=== PATIENT | female | born 1980 | race American Indian/Alaskan Native ===

== ENCOUNTER 2017-05-09 11:50 | Emergency (ER) | payer MEDICAID, OTHER ==
[2017-05-09] MEDS ORDERED: PROVENTIL IH ONE ×2 (12:37→12:38)
[2017-05-09] MEDS ORDERED: ATROVENT IH ONE ×2 (12:37→12:38)
--- NOTE | 2017-05-09 12:44 | XRay Report ---
Chest 2 views: History: Shortness of breath. Findings: Normal cardiomediastinal silhouette. Trachea is midline. No consolidation, pneumothorax or pleural effusion. Impression: No acute cardiopulmonary findings.
[2017-05-09] MEDS ORDERED: MAGNESIUM SULFATE 2GM/50ML 2 GM/50 ML BAG IV ONE (12:46)
[2017-05-09 12:47] LABS: Basophils % (Auto) 0.3 % (0.0-1.8); Eosinophils # (Auto) 0.3 K/mm3 (0.0-0.4); Eosinophils % (Auto) 3.4 % (0.0-4.3); Hematocrit 35.2 % (30.3-42.9); Hemoglobin 11.2 gm/dl (10.1-14.3); Lymphocytes # (Auto) 3.6 K/mm3 (1.2-5.4); Lymphocytes % (Auto) 38.2 % (13.4-35.0); Mean Corpuscular HGB Conc 32 % (30-34); Mean Corpuscular Volume 78 fl (79-97); Monocytes # (Auto) 0.7 K/mm3 (0.0-0.8); Monocytes % (Auto) 7.1 % (0.0-7.3); Platelet Count 274 K/mm3 (140-440); Red Blood Count 4.54 M/mm3 (3.65-5.03); Red Cell Distribution Width 16.5 % (13.2-15.2)
[2017-05-09] MEDS ORDERED: NACL 0.9% 500 ML 500 ML IV ONE (12:47)
[2017-05-09] MEDS ORDERED: APRESOLINE IV ONE (12:47)
--- NOTE | 2017-05-09 12:49 | Emergency Department Report ---
ED Asthma HPI - General Chief Complaint: Dyspnea/Respdistress Stated Complaint: ASTHMA ATTACK Time Seen by Provider: 05/09/17 12:39 Source: patient, RN notes reviewed Mode of arrival: Ambulatory Limitations: No Limitations - History of Present Illness Initial Comments: This is a 36-year-old female who was previously unknown to this provider. She does have a primary care physician, but she cannot recall his or her name. She has a past medical history obesity, asthma, hypertension, reports a few let time hospitalizations, but denies intubations. She has no leg pain, leg swelling, she reports that she is not , and she further reports no DVT or pulmonary embolus risk factors. She presents to the ER with a complaint of asthma, wheezing, cough. is has been going on intermittently for the past few weeks. Her symptoms have been waxing and waning, she reports taking albuterol at home, and the somewhat improved her symptoms. There is no chest pain, headache, neck pain or abdominal pain, vomiting or diaphoresis. MD Complaint: "asthma attack", wheezing -: Gradual Asthma History: childhood onset, history of frequent attac Severity: moderate Context: recent URI, allergen exposure, smoke exposure Associated Symptoms: dry cough Treatments Prior to Arrival: inhaled bronchodilator - Related Data Current Asthma Therapy: inhaled bronchodilator Previous Rx's Medication Instructions Recorded Last Taken Type Albuterol Sulfate [Albuterol 0.63% 0.63 mg IH Q4HR PRN #2 ml 05/09/17 Unknown Rx NEBS] Albuterol Sulfate [Proair 90 mcg IH Q4HR PRN #2 aer.pow.ba 05/09/17 Unknown Rx Respiclick] Benzonatate [Tessalon Perles] 100 mg PO Q8HR PRN #30 capsule 05/09/17 Unknown Rx Fluticasone [Flonase] 1 spray NS QDAY #1 bottle 05/09/17 Unknown Rx Ipratropium [place] [Atrovent Hfa] 12.9 gm IH Q4HR #2 hfa.aer.ad 05/09/17 Unknown Rx Ipratropium [Atrovent NEB] 0.5 mg IH Q4HR #2 ml 05/09/17 Unknown Rx predniSONE [Deltasone] 40 mg PO QDAY #8 tab 05/09/17 Unknown Rx Allergies Allergy/AdvReac Type Severity Reaction Status Date / Time raw vegetable Allergy Itching Verified 05/09/17 11:57 shellfish derived Allergy Nausea Verified 05/09/17 11:57 raw fruit Allergy Itching Uncoded 05/09/17 11:57 ED Review of Systems ROS: Stated complaint: ASTHMA ATTACK Other details as noted in HPI ED Past Medical Hx - Past Medical History Previous Medical History?: Yes Hx Hypertension: Yes Hx Asthma: Yes Additional medical history: Sleep apnea. No CPAP - Surgical History Past Surgical History?: Yes Hx Cholecystectomy: Yes Additional Surgical History: Tubaligation, Right leg surgery - Social History Smoking Status: Never Smoker Substance Use Type: Prescribed - Medications Home Medications: Home Medications Medication Instructions Recorded Confirmed Last Taken Type Albuterol Sulfate [Albuterol 0.63% 0.63 mg IH Q4HR PRN #2 ml 05/09/17 Unknown Rx NEBS] Albuterol Sulfate [Proair 90 mcg IH Q4HR PRN #2 aer.pow.ba 05/09/17 Unknown Rx Respiclick] Benzonatate [Tessalon Perles] 100 mg PO Q8HR PRN #30 capsule 05/09/17 Unknown Rx Fluticasone [Flonase] 1 spray NS QDAY #1 bottle 05/09/17 Unknown Rx Ipratropium [place] [Atrovent Hfa] 12.9 gm IH Q4HR #2 hfa.aer.ad 05/09/17 Unknown Rx Ipratropium [Atrovent NEB] 0.5 mg IH Q4HR #2 ml 05/09/17 Unknown Rx predniSONE [Deltasone] 40 mg PO QDAY #8 tab 05/09/17 Unknown Rx ED Physical Exam - General Limitations: No Limitations General appearance: alert, in no apparent distress, obese - Head Head exam: Present: atraumatic, normocephalic - Eye Eye exam: Present: normal appearance, EOMI - ENT ENT exam: Present: normal exam, normal orophraynx, mucous membranes moist, normal external ear exam - Neck Neck exam: Present: normal inspection - Respiratory Respiratory exam: Present: wheezes. Absent: rhonchi, stridor - Cardiovascular Cardiovascular Exam: Present: normal rhythm, tachycardia, normal heart sounds. Absent: systolic murmur, diastolic murmur, rubs, gallop - GI/Abdominal GI/Abdominal exam: Present: soft, normal bowel sounds. Absent: distended, tenderness, guarding, rebound, rigid, pulsatile mass - Extremities Exam Extremities exam: Present: normal inspection, full ROM, normal capillary refill. Absent: pedal edema, joint swelling, calf tenderness - Back Exam Back exam: Present: normal inspection, full ROM. Absent: tenderness, CVA tenderness (R), paraspinal tenderness, vertebral tenderness - Neurological Exam Neurological exam: Present: alert, oriented X3, CN II-XII intact, normal gait, other (Extraocular movements intact. Tongue midline. No facial droop. Facial sensation intact to light touch in the V1, V2, V3 distribution bilaterally. 5 and 5 strength in 4 extremities.. Sensation is intact to light touch in 4 extremities.). Absent: motor sensory deficit - Psychiatric Psychiatric exam: Present: normal affect, normal mood - Skin Skin exam: Present: warm, dry, intact, normal color. Absent: rash ED Course Vital Signs 05/09/17 05/09/17 05/09/17 11:57 12:37 12:39 Temperature 97.9 F Pulse Rate 122 H Pulse Rate [ 114 H Throughout] Respiratory 22 22 Rate Respiratory 25 H Rate [ Throughout] Blood Pressure 201/110 O2 Sat by Pulse 98 99 Oximetry 05/09/17 13:14 Temperature Pulse Rate 106 H Pulse Rate [ Throughout] Respiratory Rate Respiratory Rate [ Throughout] Blood Pressure 134/79 O2 Sat by Pulse Oximetry ED Medical Decision Making - Lab Data Result diagrams: 05/09/17 12:22 05/09/17 12:22 Vital Signs 05/09/17 05/09/17 05/09/17 11:57 12:37 12:39 Temperature 97.9 F Pulse Rate 122 H Pulse Rate [ 114 H Throughout] Respiratory 22 22 Rate Respiratory 25 H Rate [ Throughout] Blood Pressure 201/110 O2 Sat by Pulse 98 99 Oximetry 05/09/17 13:14 Temperature Pulse Rate 106 H Pulse Rate [ Throughout] Respiratory Rate Respiratory Rate [ Throughout] Blood Pressure 134/79 O2 Sat by Pulse Oximetry Lab Results 05/09/17 05/09/17 Range/Units 12:22 12:22 WBC 9.5 (4.5-11.0) K/mm3 RBC 4.54 (3.65-5.03) M/mm3 Hgb 11.2 (10.1-14.3) gm/dl Hct 35.2 (30.3-42.9) % MCV 78 L (79-97) fl MCH 25 L (28-32) pg MCHC 32 (30-34) % RDW 16.5 H (13.2-15.2) % Plt Count 274 (140-440) K/mm3 Lymph % (Auto) 38.2 H (13.4-35.0) % Rice % (Auto) 7.1 (0.0-7.3) % Eos % (Auto) 3.4 (0.0-4.3) % Baso % (Auto) 0.3 (0.0-1.8) % Lymph # 3.6 (1.2-5.4) K/mm3 Rice # 0.7 (0.0-0.8) K/mm3 Eos # 0.3 (0.0-0.4) K/mm3 Baso # 0.0 (0.0-0.1) K/mm3 Seg Neutrophils % 51.0 (40.0-70.0) % Seg Neutrophils # 4.8 (1.8-7.7) K/mm3 Sodium 139 (137-145) mmol/L Potassium 3.8 (3.6-5.0) mmol/L Chloride 99.2 (98-107) mmol/L Carbon Dioxide 24 (22-30) mmol/L Anion Gap 20 mmol/L BUN 15 (7-17) mg/dL Creatinine 0.8 (0.7-1.2) mg/dL Estimated GFR > 60 ml/min BUN/Creatinine Ratio 19 % Glucose 172 H (65-100) mg/dL Calcium 9.2 (8.4-10.2) mg/dL - Medical Decision Making Differential diagnosis, including but not limited to: Bronchitis, asthma exacerbation, reactive airway disease Assessment and plan: 30-year-old female with a history of asthma, presenting with cough, wheezing. Patient initially tachycardic, hypertensive, she is given albuterol, Atrovent, steroids, magnesium and IV fluids. Patient reassessed by me frequently in the ER. Patient able to ambulate without significant desaturation, and after aggressive therapy her wheezing and symptoms much improved. There is no chest pain, there are no pulmonary embolus or DVT risk factors traditionally, I would consider the patient's low risk by well's criteria. She is somewhat tachycardic this is most likely secondary to albuterol. Patient encouraged to lose weight through diet modification and follow up with outpatient primary care and pulmonology. return precautions were reviewed. Critical care attestation.: If time is entered above; I have spent that time in minutes in the direct care of this critically ill patient, excluding procedure time. ED Disposition Clinical Impression: Asthma exacerbation Disposition: DC-01 TO HOME OR SELFCARE Is pt being admited?: No Does the pt Need Aspirin: No Condition: Stable Instructions: Asthma (ED) Additional Instructions: Take the breathing medications as directed. Take the steroids as directed. take The cough medication as needed. Follow up with any of the listed lung doctors her primary care doctors within the next 2 weeks. I would recommend aggressive weight loss, through diet and life style modifications, as this will likely improve asthma, work of breathing, quality of life overall and overall health. Return to the ER with new pain, worsened pain, migration of pain, fevers, chills , lethargy, irritability, projectile vomiting, change in mental status, confusion, inability to tolerate liquid feeds. Prescriptions: Albuterol Sulfate [Albuterol 0.63% NEBS] 0.63 mg IH Q4HR PRN #2 ml PRN Reason: Wheezing Albuterol Sulfate [Proair Respiclick] 90 mcg IH Q4HR PRN #2 aer.pow.ba PRN Reason: Wheezing Benzonatate [Tessalon Perles] 100 mg PO Q8HR PRN #30 capsule PRN Reason: Cough Fluticasone [Flonase] 1 spray NS QDAY #1 bottle Ipratropium [Atrovent NEB] 0.5 mg IH Q4HR #2 ml Ipratropium [place] [Atrovent Hfa] 12.9 gm IH Q4HR #2 hfa.aer.ad predniSONE [Deltasone] 40 mg PO QDAY #8 tab Referrals: PRIMARY CARE, [Primary Care Provider] - 3-5 Days JEANNE VU MD [Staff Physician] - 3-5 Days SIMONE ANTUNEZ MD [Staff Physician] - 3-5 Days HEBER MINA MD [Staff Physician] - 3-5 Days SAIMA CHANDLER MD [Staff Physician] - 3-5 Days
[2017-05-09 12:54] LABS: BUN/Creatinine Ratio 19; Blood Urea Nitrogen 15 mg/dL (7-17); Calcium 9.2 mg/dL (8.4-10.2); Hemolysis Index 3
[2017-05-09 12:58] LABS: Mean Corpuscular Hemoglobin 25 pg (28-32)
[2017-05-09 14:27] VITALS: BP 148/81
== END 2017-05-09 14:36 | disposition home or self-care (01) ==
LOC: ED 11:50
DX: J45.901 Unspecified asthma with (acute) exacerbation (principal); I10 Essential (primary) hypertension; Z91.013 Allergy to seafood; Z91.018 Allergy to other foods
CPT/HCPCS: 36415; 71020; 80048; 85025; 93005; 93010; 94644; 96365; 96375; 99284; J2930; J3475; J7040; J0360

== ENCOUNTER 2017-06-02 21:27 | Emergency (ER) | payer OTHER ==
[2017-06-02 21:46] VITALS: BP 153/95
[2017-06-02] MEDS ORDERED: PROVENTIL IH ONE (21:47)
[2017-06-02] MEDS ORDERED: ATROVENT IH ONE (21:47)
--- NOTE | 2017-06-03 02:16 | XRay Report ---
FINAL REPORT EXAM: XR CHEST ROUTINE 2V HISTORY: SOB COMPARISON: None available. FINDINGS:: Frontal and lateral views of the chest obtained. Cardiac silhouette is within normal limits. No focal consolidation or effusion. No pneumothorax. Visualized bony thorax is grossly intact. IMPRESSION:: No acute findings.
[2017-06-03] MEDS ORDERED: ATROVENT IH ONE (05:03)
[2017-06-03] MEDS ORDERED: PROVENTIL IH ONE (05:03)
== END 2017-06-03 05:36 | disposition left against medical advice (07) ==
LOC: ED 21:27
DX: R06.02 Shortness of breath (principal)
CPT/HCPCS: 71046; 93005; 93010

== ENCOUNTER 2018-06-26 05:17 | Emergency (ER) | payer SELFPAY ==
[2018-06-26 06:16] LABS: Basophils % (Auto) 0.5 % (0.0-1.8); Eosinophils # (Auto) 0.3 K/mm3 (0.0-0.4); Eosinophils % (Auto) 3.9 % (0.0-4.3); Hemoglobin 10.3 gm/dl (10.1-14.3); Lymphocytes # (Auto) 3.7 K/mm3 (1.2-5.4); Lymphocytes % (Auto) 45.4 % (13.4-35.0); Mean Corpuscular HGB Conc 31 % (30-34); Mean Corpuscular Volume 78 fl (79-97); Monocytes # (Auto) 0.5 K/mm3 (0.0-0.8); Monocytes % (Auto) 5.5 % (0.0-7.3); Platelet Count 208 K/mm3 (140-440); Red Blood Count 4.22 M/mm3 (3.65-5.03); Red Cell Distribution Width 16.6 % (13.2-15.2)
--- NOTE | 2018-06-26 06:47 | XRay Report ---
FINAL REPORT PROCEDURE: XR CHEST ROUTINE 2V TECHNIQUE: PA and lateral chest radiographs were obtained. CPT 44476 HISTORY: Shortness of breath COMPARISON: No prior studies are available for comparison. FINDINGS: Heart: Normal. Mediastinum/Vessels: Normal. Lungs/Pleural space: Normal. Bony thorax: No acute osseous abnormality. Other: IMPRESSION: Normal examination.
[2018-06-26 07:04] LABS: BUN/Creatinine Ratio 16; Blood Urea Nitrogen 13 mg/dL (7-17); Calcium 8.3 mg/dL (8.4-10.2); Hemolysis Index 12
[2018-06-26] MEDS ORDERED: DELTASONE PO ONE (07:28)
[2018-06-26] MEDS ORDERED: PROVENTIL IH ONE (07:28)
[2018-06-26] MEDS ORDERED: ATROVENT IH ONE (07:28)
--- NOTE | 2018-06-26 07:34 | Emergency Department Report ---
HPI - General Chief Complaint: Dyspnea/Respdistress Time Seen by Provider: 06/26/18 07:22 - HPI HPI: Room 6 The patient is a 37-year-old female presenting with a chief complaint of asthma. The patient states at approximately 02:00 this morning she developed an asthma attack with shortness of breath and wheezing. Patient states it feels exactly like her asthma. Patient denies cough fever or chest pain. EMS was called and administered albuterol en route. Patient states she feels much improved but still feels as though she is wheezing a little Location: Lungs Duration: One set 02:00 Quality: Wheezing Severity: Moderate Modifying factors: [see above] Context: [see above] Mode of transportation: [not driving] ED Past Medical Hx - Past Medical History Hx Hypertension: Yes Hx Diabetes: Yes Hx Asthma: Yes 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 - Surgical History Past Surgical History?: Yes Hx Cholecystectomy: Yes Additional Surgical History: Tubaligation, Right leg surgery - Family History Family history: no significant - Social History Smoking Status: Never Smoker Substance Use Type: None (denies illicit drug use) - Medications Home Medications: Home Medications Medication Instructions Recorded Confirmed Last Taken Type Albuterol Sulfate [Albuterol 0.63% 0.63 mg IH Q4HR PRN #2 ml 05/09/17 Unknown Rx NEBS] Albuterol Sulfate [Proair 90 mcg IH Q4HR PRN #2 aer.pow.ba 05/09/17 Unknown Rx Respiclick] Benzonatate [Tessalon Perles] 100 mg PO Q8HR PRN #30 capsule 05/09/17 Unknown Rx Fluticasone [Flonase] 1 spray NS QDAY #1 bottle 05/09/17 Unknown Rx Ipratropium [place] [Atrovent Hfa] 12.9 gm IH Q4HR #2 hfa.aer.ad 05/09/17 Unknown Rx Ipratropium [Atrovent NEB] 0.5 mg IH Q4HR #2 ml 05/09/17 Unknown Rx predniSONE [Deltasone] 40 mg PO QDAY #8 tab 05/09/17 Unknown Rx ALBUTEROL Inhaler (OR & NICU) 2 puff IH QID PRN #1 inhalation 06/26/18 Unknown Rx [Proair] Prednisone [predniSONE 10 mg 10 mg PO .TAPER #1 tab.ds.pk 06/26/18 Unknown Rx (6-Day Pack, 21 Tabs)] ED Review of Systems ROS: Stated complaint: ASTHMA Other details as noted in HPI Constitutional: denies: fever Eyes: denies: eye pain ENT: denies: throat pain Respiratory: shortness of breath, wheezing Cardiovascular: denies: chest pain Endocrine: no symptoms reported Gastrointestinal: denies: abdominal pain Genitourinary: denies: dysuria Musculoskeletal: denies: back pain Neurological: denies: headache Physical Exam - Physical Exam Vital Signs: Vital Signs 06/26/18 06/26/18 05:39 07:04 Temperature 97.8 F Pulse Rate 116 H Respiratory 20 19 Rate Blood Pressure 183/106 [Right] O2 Sat by Pulse 98 98 Oximetry Physical Exam: GENERAL: The patient is well-developed well-nourished female lying on stretcher not appearing to be in acute distress. [] HEENT: Normocephalic. Atraumatic. Extraocular motions are intact. Patient has moist mucous membranes. NECK: Supple. Trachea midline CHEST/LUNGS: Slightly diminished. No wheezing auscultated. There is no respiratory distress noted. HEART/CARDIOVASCULAR: Regular. There is no tachycardia. There is no gallop rub or murmur. ABDOMEN: Abdomen is soft, nontender. Patient has normal bowel sounds. There is no abdominal distention. SKIN: There is no rash. There is no diaphoresis. NEURO: The patient is awake, alert, and oriented. The patient is cooperative. The patient has normal speech MUSCULOSKELETAL: There is no evidence of acute injury. ED Course Vital Signs 06/26/18 06/26/18 05:39 07:04 Temperature 97.8 F Pulse Rate 116 H Respiratory 20 19 Rate Blood Pressure 183/106 [Right] O2 Sat by Pulse 98 98 Oximetry - Reevaluation(s) Reevaluation #1: 06/26/18 08:35 Patient states she feels improved ED Medical Decision Making - Lab Data Result diagrams: 06/26/18 05:53 06/26/18 05:53 - Radiology Data Radiology results: report reviewed (chest x-ray), image reviewed (chest x-ray) interpreted by me: Chest x-ray-no focal infiltrates, no pneumothorax [facility] [address] [place] [address] XRay Report Signed Patient: DAISHA HERRMANN MR#: [id number] : 1980 Acct:[id number] Age/Sex: 37 / F ADM Date: 06/26/18 Loc: ED Attending Dr: Ordering Physician: CYRIL HOLLINS MD Date of Service: 06/26/18 Procedure(s): XR chest routine 2V Accession Number(s): [id number] cc: CYRIL HOLLINS MD Fluoro Time In Minutes: FINAL REPORT PROCEDURE: XR CHEST ROUTINE 2V TECHNIQUE: PA and lateral chest radiographs were obtained. CPT 39815 HISTORY: Shortness of breath COMPARISON: No prior studies are available for comparison. FINDINGS: Heart: Normal. Mediastinum/Vessels: Normal. Lungs/Pleural space: Normal. Bony thorax: No acute osseous abnormality. Other: IMPRESSION: Normal examination. Transcribed By: CO Dictated By: AUNG COREA MD Electronically Authenticated By: AUNG COREA MD Signed Date/Time: 06/26/18646 DD/ 4 TD/TT: 06/26/18644 - Differential Diagnosis asthma exacerbation Critical care attestation.: If time is entered above; I have spent that time in minutes in the direct care of this critically ill patient, excluding procedure time. ED Disposition Clinical Impression: Acute asthma exacerbation, Shortness of breath Disposition: DC-01 TO HOME OR SELFCARE Is pt being admited?: No Does the pt Need Aspirin: No Condition: Stable Instructions: Asthma (ED) Additional Instructions: Return to the emergency department immediately should you develop worsening symptoms, fever, inability to tolerate food or liquid or any other concerns. Prescriptions: ALBUTEROL Inhaler (OR & NICU) [Proair] 2 puff IH QID PRN #1 inhalation PRN Reason: Shortness Of Breath Prednisone [predniSONE 10 mg (6-Day Pack, 21 Tabs)] 10 mg PO .TAPER #1 tab.ds.pk Referrals: PRIMARY CARE, [Primary Care Provider] - 3-5 Days Time of Disposition: 08:36
[2018-06-26 09:20] VITALS: BP 174/92
== END 2018-06-26 09:19 | disposition home or self-care (01) ==
LOC: ED 05:17
DX: J45.901 Unspecified asthma with (acute) exacerbation (principal); I10 Essential (primary) hypertension; E11.9 Type 2 diabetes mellitus without complications
CPT/HCPCS: 36415; 71046; 80048; 84703; 85025; 93005; 93010; 94644; 99284; J7512

== ENCOUNTER 2019-06-07 12:09 | Emergency (ER) | payer SELFPAY ==
[2019-06-07] MEDS ORDERED: ALBUTEROL 2.5 MG/3 ML NEBU IH ONE (13:29)
[2019-06-07] MEDS ORDERED: IPRATROPIUM 0.02% NEBU 2.5 ML IH ONE (13:29)
--- NOTE | 2019-06-07 14:07 | XRay Report ---
CHEST 1 VIEW 1:30 PM INDICATION / CLINICAL INFORMATION: Asthma and wheezing. COMPARISON: 06/26/2018. FINDINGS: SUPPORT DEVICES: None. HEART / MEDIASTINUM: The heart size and pulmonary vasculature are normal. LUNGS / PLEURA: No significant pulmonary or pleural abnormality. No pneumothorax. ADDITIONAL FINDINGS: No significant additional findings. IMPRESSION: No acute abnormality or significant change. Signer Name: Soto Jeronimo MD Signed: 06/07/2019 2:02 PM Workstation Name: [id number]
--- NOTE | 2019-06-07 14:58 | Emergency Department Report ---
ED Asthma HPI - General Chief Complaint: Adult Asthma Stated Complaint: ASTHMA Time Seen by Provider: 06/07/19 13:19 Source: patient Mode of arrival: Stretcher Limitations: No Limitations - History of Present Illness Initial Comments: pt is a 38-year-old female presents emergency room with complaints of an asthma exacerbation that began this morning. She states she was recently started on metoprolol for her blood pressure and she states she began to feel short of breath after taking the medication today. She states she has associated wheezing. She states that EMS gave her nebulizer treatments steroids and she feels much better now. She states she just has a mild wheeze. She denies any cough, fever, rhinorrhea, leg swelling, CP. she has a history of DM, hypertension, sleep apnea. she does not sleep with a CPAP and states she cannot get another CPAP until she has another sleep study performed - Related Data Previous Rx's Medication Instructions Recorded Last Taken Type Albuterol Sulfate [Albuterol 0.63% 0.63 mg IH Q4HR PRN #2 ml 05/09/17 Unknown Rx NEBS] Albuterol Sulfate [Proair 90 mcg IH Q4HR PRN #2 aer.pow.ba 05/09/17 Unknown Rx Respiclick] Benzonatate [Tessalon Perles] 100 mg PO Q8HR PRN #30 capsule 05/09/17 Unknown Rx Fluticasone [Flonase] 1 spray NS QDAY #1 bottle 05/09/17 Unknown Rx Ipratropium Carroll [Atrovent Hfa] 12.9 gm IH Q4HR #2 hfa.aer.ad 05/09/17 Unknown Rx Ipratropium [Atrovent NEB] 0.5 mg IH Q4HR #2 ml 05/09/17 Unknown Rx predniSONE [Deltasone] 40 mg PO QDAY #8 tab 05/09/17 Unknown Rx Albuterol INH(or & Nicu Only) 2 puff IH QID PRN #1 inhalation 06/26/18 Unknown Rx [Proair] Prednisone [predniSONE 10 mg 10 mg PO .TAPER #1 tab.ds.pk 06/26/18 Unknown Rx (6-Day Pack, 21 Tabs)] Albuterol Sulfate [Proventil Hfa] 6.7 gm IH Q4HR PRN #1 hfa.aer.ad 06/07/19 Unknown Rx Losartan [Cozaar] 25 mg PO QDAY #30 tablet 06/07/19 Unknown Rx predniSONE [Deltasone] 20 mg PO QDAY #7 tab 06/07/19 Unknown Rx Allergies Allergy/AdvReac Type Severity Reaction Status Date / Time raw vegetable Allergy Itching Verified 05/09/17 11:57 shellfish derived Allergy Nausea Verified 05/09/17 11:57 raw fruit Allergy Itching Uncoded 05/09/17 11:57 ED Review of Systems ROS: Stated complaint: ASTHMA Other details as noted in HPI Comment: All other systems reviewed and negative ED Past Medical Hx - Past Medical History Previous Medical History?: Yes Hx Hypertension: Yes Hx Diabetes: Yes Hx Asthma: Yes 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 - Surgical History Past Surgical History?: Yes Hx Cholecystectomy: Yes Additional Surgical History: Tubaligation, Right leg surgery - Social History Smoking Status: Never Smoker Substance Use Type: None - Medications Home Medications: Home Medications Medication Instructions Recorded Confirmed Last Taken Type Albuterol Sulfate [Albuterol 0.63% 0.63 mg IH Q4HR PRN #2 ml 05/09/17 Unknown Rx NEBS] Albuterol Sulfate [Proair 90 mcg IH Q4HR PRN #2 aer.pow.ba 05/09/17 Unknown Rx Respiclick] Benzonatate [Tessalon Perles] 100 mg PO Q8HR PRN #30 capsule 05/09/17 Unknown Rx Fluticasone [Flonase] 1 spray NS QDAY #1 bottle 05/09/17 Unknown Rx Ipratropium Carroll [Atrovent Hfa] 12.9 gm IH Q4HR #2 hfa.aer.ad 05/09/17 Unknown Rx Ipratropium [Atrovent NEB] 0.5 mg IH Q4HR #2 ml 05/09/17 Unknown Rx predniSONE [Deltasone] 40 mg PO QDAY #8 tab 05/09/17 Unknown Rx Albuterol INH(or & Nicu Only) 2 puff IH QID PRN #1 inhalation 06/26/18 Unknown Rx [Proair] Prednisone [predniSONE 10 mg 10 mg PO .TAPER #1 tab.ds.pk 06/26/18 Unknown Rx (6-Day Pack, 21 Tabs)] Albuterol Sulfate [Proventil Hfa] 6.7 gm IH Q4HR PRN #1 hfa.aer.ad 06/07/19 Unknown Rx Losartan [Cozaar] 25 mg PO QDAY #30 tablet 06/07/19 Unknown Rx predniSONE [Deltasone] 20 mg PO QDAY #7 tab 06/07/19 Unknown Rx ED Physical Exam - General Limitations: No Limitations General appearance: alert, in no apparent distress - Head Head exam: Present: atraumatic, normocephalic - Eye Eye exam: Present: normal appearance - ENT ENT exam: Present: mucous membranes moist - Respiratory Respiratory exam: Present: wheezes (mild expiratory), prolonged expiratory. Absent: respiratory distress, rales, rhonchi, stridor, chest wall tenderness, accessory muscle use, decreased breath sounds - Cardiovascular Cardiovascular Exam: Present: regular rate, normal rhythm, normal heart sounds. Absent: systolic murmur, diastolic murmur, rubs, gallop - Neurological Exam Neurological exam: Present: alert, oriented X3 - Psychiatric Psychiatric exam: Present: normal affect, normal mood - Skin Skin exam: Present: warm, dry, intact ED Course Vital Signs 06/07/19 06/07/19 06/07/19 12:20 12:25 13:07 Temperature 98.1 F Pulse Rate 96 H 98 H Respiratory 22 22 Rate Blood Pressure 183/87 [Right] O2 Sat by Pulse 97 98 Oximetry 06/07/19 16:21 Temperature Pulse Rate 95 H Respiratory 19 Rate Blood Pressure 183/105 [Right] O2 Sat by Pulse 95 Oximetry - Reevaluation(s) Reevaluation #1: 06/07/19 15:54 wheezing has completely resolved s/p neb tx, pt is feeling much better ED Medical Decision Making - Radiology Data Radiology results: report reviewed CHEST 1 VIEW 1:30 PM INDICATION / CLINICAL INFORMATION: Asthma and wheezing. COMPARISON: 06/26/2018. FINDINGS: SUPPORT DEVICES: None. HEART / MEDIASTINUM: The heart size and pulmonary vasculature are normal. LUNGS / PLEURA: No significant pulmonary or pleural abnormality. No pneumothorax. ADDITIONAL FINDINGS: No significant additional findings. IMPRESSION: No acute abnormality or significant change. Signer Name: Soto Jeronimo MD Signed: 06/07/2019 2:02 PM Workstation Name: [id number] Transcribed By: RT Dictated By: Soto Jeronimo MD Electronically Authenticated By: Soto Jeronimo MD Signed Date/Time: 06/07/191401 DD/ 140 TD/TT: - Medical Decision Making pt is a 38-year-old female presents emergency room with complaints of an asthma exacerbation that began this morning. She states she was recently started on metoprolol for her blood pressure and she states she began to feel short of breath after taking the medication today. She states she has associated wheezing. She states that EMS gave her nebulizer treatments steroids and she feels much better now. She states she just has a mild wheeze. She denies any cough, fever, rhinorrhea, leg swelling, CP. she has a history of DM, hypertension, sleep apnea. she does not sleep with a CPAP and states she cannot get another CPAP until she has another sleep study performed. vitals with elev ated BP, otherwise normal. pts elevated BP is asymptomatic, she states she was recently started on metoprolol, she states years ago she took losartan which she says controlled her blood pressure well but it was on back order at that time so she stopped taking it. on exam: mild expiratory wheeze bilaterally. pt given neb tx and wheezing completely resolved and breath sounds are clear. CXR with no a cute process. pt given prescription for prednisone, advised pt to please monitor her blood sugar and if began elevating then to stop taking it. also given prescription for albuterol inhaler and losartan. will take pt off of the metoprolol, she states that she only takes it for blood pressure control, given that she is an asthmatic will take her off of a beta theodore. advised pt to please take medication as prescribed. Please stop taking metoprolol and began taking losartan. Please keep a blood pressure log and take your blood pressure 3 times a day. Eat a low-sodium diet. Follow up with a primary care doctor in the next 2-3 days for reexamination. Return to the emergency room immediately for any new or worsening this. - Differential Diagnosis asthma, URI, PNA, viral syndrome, medication reaction Critical care attestation.: If time is entered above; I have spent that time in minutes in the direct care of this critically ill patient, excluding procedure time. ED Disposition Clinical Impression: Asthma exacerbation Qualifiers: Asthma severity: unspecified severity Asthma persistence: unspecified Qualified Code(s): J45.901 - Unspecified asthma with (acute) exacerbation Disposition: DC-01 TO HOME OR SELFCARE Is pt being admited?: No Does the pt Need Aspirin: No Condition: Stable Instructions: Asthma (ED) Additional Instructions: please take medication as prescribed. Please stop taking metoprolol and began taking losartan. Please keep a blood pressure log and take your blood pressure 3 times a day. Eat a low-sodium diet. Follow up with a primary care doctor in the next 2-3 days for reexamination. Return to the emergency room immediately for any new or worsening this. Prescriptions: Losartan [Cozaar] 25 mg PO QDAY #30 tablet predniSONE [Deltasone] 20 mg PO QDAY #7 tab Albuterol Sulfate [Proventil Hfa] 6.7 gm IH Q4HR PRN #1 hfa.aer.ad PRN Reason: shortness of breath Referrals: PRIMARY CARE, [Primary Care Provider] - 2-3 Days Time of Disposition: 15:55 Print Language: INDONESIAN
[2019-06-07 16:22] VITALS: BP 183/105
== END 2019-06-07 16:22 | disposition home or self-care (01) ==
LOC: ED 12:09
DX: J45.901 Unspecified asthma with (acute) exacerbation (principal); I10 Essential (primary) hypertension; E11.9 Type 2 diabetes mellitus without complications; Z90.49 Acquired absence of other specified parts of digestive tract; Z98.51 Tubal ligation status; Z98.890 Other specified postprocedural states; Z79.899 Other long term (current) drug therapy; Z91.013 Allergy to seafood; Z91.018 Allergy to other foods
CPT/HCPCS: 71045; 94640